=== PATIENT | male | born 2000 | race Asian ===

== ENCOUNTER 2023-03-30 13:16 | Outpatient (CLI) | payer OTHER ==
--- NOTE | 2023-03-30 22:04 | MRI Report ---
PROCEDURE: LUMBAR SPINE WO INDICATIONS: LOW BACK PAIN TECHNIQUE: Noncontrast sagittal T1 spin echo and T2 fast echo, sagittal STIR, axial T1 and T2 fast spin echo thr ough the lumbar spine. In cases with scoliosis, additional coronal T2 fast spin echo may be performe d. COMPARISON: None. FINDINGS: Image quality: Excellent. Alignment and Curvature: There is normal bony alignment. Bone Marrow: Marrow is of normal overall signal. No acute vertebral body compression fractures. Spinal Cord: Conus medullaris terminates at the L1 level. Visualized cord demonstrates normal signa l and size. Paraspinous Soft Tissues: No paravertebral masses. T12-L1: Normal in appearance. L1-L2: Normal in appearance. L2-L3: Normal in appearance. L3-L4: Disc space narrowing posterior central disc protrusion results in moderate severe central st enosis when combined with dorsal epidural fat. No foraminal stenosis L4-L5: Asymmetric right broad-based disc bulge effaces the right lateral recess. Mild bilateral for aminal stenosis. No central stenosis. L5-S1: Disc spaces maintained. Right paracentral disc protrusion results in mild to moderate centra l stenosis. No foraminal stenosis IMPRESSION: Mild degenerative disc disease and arthropathy including multilevel protrusions results in moderate t o severe central stenosis at L3-4 Reviewed by: Pratik Gutiérrez MD on 03/30/2023 9:03 PM [facility] Approved by: Pratik Gutiérrez MD on 03/30/2023 9:03 PM [facility] Station ID: [id number]
== END 2023-03-30 13:17 | disposition home or self-care (01) ==
LOC: DI 13:16
PROVIDERS: ATTEND Student in an Organized Health Care Education/Training Program
DX: M47.26 Other spondylosis with radiculopathy, lumbar region (principal); M51.16 Intervertebral disc disorders with radiculopathy, lumbar region; M48.061 Spinal stenosis, lumbar region without neurogenic claudication